=== PATIENT | female | born 1960 | race Caucasian/White ===

== ENCOUNTER 2023-12-14 08:22 | Inpatient (IN) | payer MEDICARE, OTHER ==
[~2023-12-14] VITALS: Ht 160 cm; Wt 95.7 kg
[2023-12-28] MEDS ORDERED: TIZA4TAB5 PO (14:07)
[2023-12-28] MEDS ORDERED: LORA10TA7 PO (14:07)
[2023-12-28] MEDS ORDERED: BENZ-38 PO (14:07)
[2023-12-28] MEDS ORDERED: CLON0.1T PO (14:07)
[2023-12-28] MEDS ORDERED: DULO60CA64 PO (14:07)
[2023-12-28] MEDS ORDERED: LINA145C PO (14:07)
[2023-12-28] MEDS ORDERED: SUMA50TA17 PO (14:07)
[2023-12-28] MEDS ORDERED: OXYC30TA2 PO (14:07)
[2023-12-28] MEDS ORDERED: TEMA30CA PO (14:07)
[2023-12-28] MEDS ORDERED: GABA-536 PO (14:07)
[2023-12-28] MEDS ORDERED: SULI150T PO (14:07)
[2023-12-28] MEDS ORDERED: SEMA1PEN SQ (14:07)
[2023-12-28] MEDS ORDERED: OXYC20TA58 PO (14:07)
[2023-12-28] MEDS ORDERED: BUDE10.2 IH (14:07)
[2023-12-28] MEDS ORDERED: EMPA1TAB7 PO (14:07)
[2023-12-28] MEDS ORDERED: DICL100G26 TP (14:07)
[2023-12-28] MEDS ORDERED: NIFE90TA61 PO (14:07)
[2023-12-28] MEDS ORDERED: ATEN50TA PO (14:07)
[2023-12-28] MEDS ORDERED: ALBU18HF2 IH (14:07)
[2023-12-28 14:56] LABS: BASOPHILS # (AUTO) 0.1 K/uL (0.0-0.2); BASOPHILS % (AUTO) 0.8 % (0.0-2.0); EOSINOPHILS # (AUTO) 0.4 K/uL (0.0-0.7); HEMATOCRIT 41 % (33-45); HEMOGLOBIN 13.8 g/dL (11.5-14.8); LYMPHOCYTES # (AUTO) 2.9 K/uL (0.8-4.8); LYMPHOCYTES % (AUTO) 30.5 % (20.0-44.0); MEAN CORPUSCULAR HEMOGLOBIN 33 PG (26.0-33.0); MEAN CORPUSCULAR HGB CONC 34 g/dl (31.0-36.0); MEAN CORPUSCULAR VOLUME 98 fL (82-100); MONOCYTES # (AUTO) 0.5 K/uL (0.1-1.30); MONOCYTES % (AUTO) 5.7 % (2.0-12.0); NEUTROPHILS # (AUTO) 5.6 K/uL (1.8-8.9); PLATELET COUNT (AUTO) 220 K/uL (150-450); RED BLOOD CELL COUNT(AUTO) 4.17 MIL/uL (4.0-5.2); RED CELL DISTRIBUTION WIDTH 13.7 % (11.5-15.0); WHITE BLOOD COUNT (AUTO) 9.4 K/uL (4.3-11.0)
[2023-12-28 15:17] LABS: INR 1.08 (0.91-1.10); PARTIAL THROMBOPLASTIN TIME 29.6 SEC (24.3-34.3); PROTHROMBIN TIME 11.4 SECS (9.2-11.1)
[2023-12-28] MEDS ORDERED: NALOXONE HCL 0.4 MG/ML AMPUL IV PRN (15:30)
[2023-12-28 15:50] LABS: ALBUMIN 3.5 g/dL (3.4-5.0); BILIRUBIN,TOTAL 0.2 mg/dL (0.2-1.0); CALCIUM, SERUM 8.9 mg/dL (8.5-10.1); CREATININE 1.2 mg/dL (0.6-1.3); POTASSIUM 3.6 mmol/L (3.5-5.1); TOTAL PROTEIN, SERUM 7.4 g/dL (6.4-8.2)
[2023-12-28] MEDS: oxyCODONE IR immediate release 5 MG TABLET PO PRN (15:55)
[2023-12-28] MEDS ORDERED: ALBUTEROL FS 2.5 MG/3 ML VIAL.NEB NEB PRN (16:00)
[2023-12-28] MEDS: GABAPENTIN 400 MG CAPSULE PO SCH (16:58)
[2023-12-28] MEDS: DULOXETINE HCL 30 MG CAPSULE.DR PO SCH (16:58)
[2023-12-28] MEDS: TIZANIDINE HCL 4 MG TABLET PO SCH (16:58)
[2023-12-28] MEDS: BUDESONIDE RESPULE INH 0.5 MG/2 ML AMPUL.NEB IH SCH (17:00)
[2023-12-28 20:00] VITALS: BP 119/78; TEMP 97.9; O2SAT 96
[2023-12-28] MEDS: ALBUTEROL FS 2.5 MG/3 ML VIAL.NEB NEB SCH (20:15)
[2023-12-28 20:16] VITALS: O2SAT 97
[2023-12-28 20:26] VITALS: O2SAT 98
[2023-12-28] MEDS: oxyCODONE HCL SR 20MG TAB.SR.12H PO SCH (20:37)
[2023-12-28] MEDS: IV D5/0.45 NACL 1,000 ML IV ONE (23:52)
[2023-12-29] VITALS (9 sets, daily range): BP systolic 148–165; BP diastolic 87–102; TEMP 97–97.2; O2SAT 97–100
[2023-12-29] MEDS: MORPHINE SULFATE INJ 2 MG/ML DISP.SYRIN IV PRN (05:41)
[2023-12-29] MEDS ORDERED: POLYMYXIN B SULFATE 0 UNITS ONE (07:38)
[2023-12-29] MEDS ORDERED: CELLULOSE,OXIDIZED 1 EA PACK MC ONE (07:38)
[2023-12-29] MEDS ORDERED: CELLULOSE,OXIDIZED 1 EACH EACH MC ONE (07:39)
[2023-12-29] MEDS ORDERED: CEFAZOLIN 2 GM ONE (07:39)
[2023-12-29] MEDS ORDERED: LIDOCAINE 1%-EPI 1:100,000 20 ML VIAL ONE (07:39)
[2023-12-29] MEDS ORDERED: GELATIN SPONGE,ABSORBABLE 1 SPONGE SPONGE TP ONE (07:40)
[2023-12-29] MEDS ORDERED: GELATIN SPONGE,ABSORBABLE 1 EA SPONGE TP ONE ×2 (07:40→15:04)
[2023-12-29] MEDS ORDERED: HEMOSTATIC MATRIX 8 ML 1 EACH PAD MC ONE (07:41)
[2023-12-29] MEDS ORDERED: THROMBIN (BOVINE) 5,000 UNITS VIAL TP ONE ×3 (07:41→15:04)
[2023-12-29] MEDS ORDERED: LIDOCAINE 5% (PATCH) 1 EA PATCH TP ONE (07:41)
[2023-12-29] MEDS ORDERED: IOHEXOL 240MG/ML 0 ML IV ONE (07:42)
[2023-12-29] MEDS ORDERED: BUPIVACAINE 0.5 % PF 150 MG/30 ML VIAL ONE (07:42)
[2023-12-29] MEDS: ATENOLOL 50 MG TABLET PO SCH (09:00)
[2023-12-29] MEDS: NIFEDIPINE XL 60 MG TAB.ER.24 PO SCH (09:00)
[2023-12-29] MEDS ORDERED: ROCURONIUM BROMIDE 50 MG/5 ML ONE ×3 (09:41→11:16)
[2023-12-29 09:46] LABS: APPEARANCE,URINE SLIGHTLY CLOUDY (CLEAR); BILIRUBIN,URINE NEGATIVE (NEGATIVE); BLOOD, URINE NEGATIVE Ery/uL (NEGATIVE); COLOR,URINE YELLOW (YELLOW); KETONES,URINE NEGATIVE (NEGATIVE); LEUKOCYTE ESTERASE ,URINE NEGATIVE (NEGATIVE); NITRITE, URINE POSITIVE (NEGATIVE); PROTEIN,URINE NEGATIVE (NEGATIVE); UGLUCOSE 2+ mg/dL (NEGATIVE); UROBILINOGEN,URINE 0.2 EU/dL (0.2)
[2023-12-29] MEDS ORDERED: HEPARIN SODIUM, PORCINE 5000 UNITS/1 ML VIAL ONE (09:48)
[2023-12-29 09:54] LABS: ADD URINE CULTURE YES; BACTERIA,URINE Moderate /HPF (None Seen); RBC,URINE 0-2 /HPF (0-2); SQUAMOUS EPITHELIAL CELL,UR Rare /HPF (None Seen)
[2023-12-29] MEDS ORDERED: LEVOFLOXACIN 500 MG /D5W 100ML 100 ML IV ONE (10:56)
[2023-12-29 11:03] LABS: ABG BASE EXCESS 1.4 mmol/L; ABG OXYGEN SATURATION 99.6 % (92.0-98.5); ABG PCO2 49.3 mmHg (35.0-45.0); ABG PH 7.367 (7.350-7.450); ABG PO2 504.7 mmHg (75.0-100.0); ABG TOTAL HEMOGLOBIN 16.6 G/dL (12.0-16.0); COHb 0.5 % (0.5-1.5); MetHb 0.4 % (0.0-1.5); O2Hb 98.7 % (94.0-97.0); SITE, ABG A-Line; VENT MODE, BG 100%
[2023-12-29] MEDS ORDERED: PROPOFOL 100 ML ONE (11:07)
[2023-12-29] MEDS ORDERED: PROPOFOL 0 ML IV ONE (11:11)
[2023-12-29] MEDS ORDERED: PROPOFOL 200 ML ONE (11:11)
[2023-12-29] MEDS ORDERED: LABETALOL HCL IV 100MG VIAL ONE (11:29)
[2023-12-29] MEDS ORDERED: FENTANYL PF 250MCG/5ML AMPUL ONE (11:48)
[2023-12-29] MEDS ORDERED: TRANEXAMIC ACID 1,000 MG/10 ML VIAL ONE (12:29)
[2023-12-29] MEDS ORDERED: POLYMYXIN B SULFATE 1,000,000 UNITS ONE (13:05)
[2023-12-29] MEDS ORDERED: CEFAZOLIN 1 GM ONE ×3 (13:05→15:21)
[2023-12-29 15:04] LABS: ABG BASE EXCESS -2.8 mmol/L; ABG OXYGEN SATURATION 99.6 % (92.0-98.5); ABG PCO2 38.5 mmHg (35.0-45.0); ABG PH 7.375 (7.350-7.450); ABG PO2 481.9 mmHg (75.0-100.0); ABG TOTAL HEMOGLOBIN 15.6 G/dL (12.0-16.0); AaDO2 192.6 mmHg; COHb 0.3 % (0.5-1.5); MetHb 0.4 % (0.0-1.5); O2Hb 98.9 % (94.0-97.0); SITE, ABG A-Line; VENT MODE, BG 100%
[2023-12-29 16:12] LABS: BASOPHILS % (AUTO) 0.2 % (0.0-2.0); EOSINOPHILS % (AUTO) 0.1 % (0.0-6.0); HEMATOCRIT 44 % (33-45); HEMOGLOBIN 14.8 g/dL (11.5-14.8); LYMPHOCYTES % (AUTO) 4.6 % (20.0-44.0); MEAN CORPUSCULAR HEMOGLOBIN 33 PG (26.0-33.0); MEAN CORPUSCULAR HGB CONC 33 g/dl (31.0-36.0); MEAN CORPUSCULAR VOLUME 98 fL (82-100); MONOCYTES # (AUTO) 0.9 K/uL (0.1-1.30); MONOCYTES % (AUTO) 3.9 % (2.0-12.0); NEUTROPHILS # (AUTO) 20.2 K/uL (1.8-8.9); NEUTROPHILS % (AUTO) 91.2 % (43.0-81.0); PLATELET COUNT (AUTO) 305 K/uL (150-450); RED BLOOD CELL COUNT(AUTO) 4.53 MIL/uL (4.0-5.2); RED CELL DISTRIBUTION WIDTH 13.8 % (11.5-15.0); WHITE BLOOD COUNT (AUTO) 22.1 K/uL (4.3-11.0)
[2023-12-29 17:10] LABS: ABG BASE EXCESS -6.3 mmol/L; ABG OXYGEN SATURATION 99.6 % (92.0-98.5); ABG PCO2 36.7 mmHg (35.0-45.0); ABG PH 7.329 (7.350-7.450); ABG PO2 524.5 mmHg (75.0-100.0); ABG TOTAL HEMOGLOBIN 16.5 G/dL (12.0-16.0); AaDO2 151.8 mmHg; COHb 0.4 % (0.5-1.5); MetHb 0.4 % (0.0-1.5); O2Hb 98.8 % (94.0-97.0); SITE, ABG A-Line; VENT MODE, BG 100% during surgery
[2023-12-29] MEDS ORDERED: FENTANYL PF 100MCG/2ML AMPUL ONE (20:45)
[2023-12-29] MEDS: IV D5/0.45 NACL 1,000 ML IV PRN (21:10)
[2023-12-29] MEDS: ZOSYN IVPB 3.375 G in IV D5W 50ml IV SCH (21:10)
[2023-12-29] MEDS: HYDROMORPHONE 1 MG/1 ML DISP.SYRIN IV PRN (21:33)
[2023-12-29] MEDS: VANCOMYCIN 1 GM in IV D5W 250ml IV SCH (22:07)
[2023-12-29] MEDS: ONDANSETRON HCL/PF 4 MG/2 ML VIAL IV PRN (22:14)
[2023-12-29] MEDS: METOCLOPRAMIDE HCL 10 MG/2 ML VIAL IV PRN (22:56)
[2023-12-29] MEDS: HYDROMORPHONE INJ 2 MG/ML DISP.SYRIN IV PRN (23:34)
[2023-12-30] VITALS (49 sets, daily range): BP systolic 58–165; BP diastolic 23–112; TEMP 97.6–98.8; O2SAT 93–100
[2023-12-30 00:24] LABS: THYROID STIMULATING HORMONE 1.35 uIU/mL (0.358-3.74)
[2023-12-30 04:36] LABS: BASOPHILS % (AUTO) 0.1 % (0.0-2.0); HEMATOCRIT 42 % (33-45); HEMOGLOBIN 13.9 g/dL (11.5-14.8); LYMPHOCYTES # (AUTO) 1.2 K/uL (0.8-4.8); LYMPHOCYTES % (AUTO) 4.6 % (20.0-44.0); MEAN CORPUSCULAR HEMOGLOBIN 31 PG (26.0-33.0); MEAN CORPUSCULAR HGB CONC 33 g/dl (31.0-36.0); MEAN CORPUSCULAR VOLUME 93 fL (82-100); MONOCYTES % (AUTO) 11.2 % (2.0-12.0); NEUTROPHILS # (AUTO) 22.5 K/uL (1.8-8.9); NEUTROPHILS % (AUTO) 84.1 % (43.0-81.0); PLATELET COUNT (AUTO) 265 K/uL (150-450); RED BLOOD CELL COUNT(AUTO) 4.47 MIL/uL (4.0-5.2); RED CELL DISTRIBUTION WIDTH 18.4 % (11.5-15.0); WHITE BLOOD COUNT (AUTO) 26.8 K/uL (4.3-11.0)
[2023-12-30 04:49] LABS: ALBUMIN 2.9 g/dL (3.4-5.0); BILIRUBIN,TOTAL 0.5 mg/dL (0.2-1.0); CALCIUM, SERUM 8.4 mg/dL (8.5-10.1); CREATININE 1.1 mg/dL (0.6-1.3); TOTAL PROTEIN, SERUM 6.5 g/dL (6.4-8.2)
[2023-12-30] MEDS: NIFEdipine XL (30MG) 30 MG TAB PO SCH (08:58)
[2023-12-30] MEDS: ATENOLOL 25 MG TABLET PO SCH (09:00)
[2023-12-30] MEDS: IV NS 0.9% 1,000 ML IV ONE (19:53)
[2023-12-31] VITALS (40 sets, daily range): BP systolic 101–186; BP diastolic 52–103; TEMP 98–98.5; O2SAT 95–100
[2023-12-31 04:41] LABS: BASOPHILS # (AUTO) 0.1 K/uL (0.0-0.2); BASOPHILS % (AUTO) 0.3 % (0.0-2.0); EOSINOPHILS # (AUTO) 0.2 K/uL (0.0-0.7); EOSINOPHILS % (AUTO) 0.9 % (0.0-6.0); HEMATOCRIT 29 % (33-45); HEMOGLOBIN 9.5 g/dL (11.5-14.8); LYMPHOCYTES # (AUTO) 2.6 K/uL (0.8-4.8); LYMPHOCYTES % (AUTO) 12.8 % (20.0-44.0); MEAN CORPUSCULAR HEMOGLOBIN 31 PG (26.0-33.0); MEAN CORPUSCULAR HGB CONC 34 g/dl (31.0-36.0); MEAN CORPUSCULAR VOLUME 94 fL (82-100); MONOCYTES # (AUTO) 2.2 K/uL (0.1-1.30); MONOCYTES % (AUTO) 10.7 % (2.0-12.0); NEUTROPHILS # (AUTO) 15.4 K/uL (1.8-8.9); NEUTROPHILS % (AUTO) 75.3 % (43.0-81.0); PLATELET COUNT (AUTO) 186 K/uL (150-450); RED BLOOD CELL COUNT(AUTO) 3.04 MIL/uL (4.0-5.2); RED CELL DISTRIBUTION WIDTH 18.4 % (11.5-15.0); WHITE BLOOD COUNT (AUTO) 20.4 K/uL (4.3-11.0)
[2023-12-31 04:55] LABS: ALBUMIN 2.5 g/dL (3.4-5.0); BILIRUBIN,TOTAL 0.5 mg/dL (0.2-1.0); CALCIUM, SERUM 8.2 mg/dL (8.5-10.1); CREATININE 0.8 mg/dL (0.6-1.3); POTASSIUM 3.6 mmol/L (3.5-5.1); TOTAL PROTEIN, SERUM 5.7 g/dL (6.4-8.2)
[2023-12-31] MEDS: NIFEdipine XL (30MG) 30 MG TAB PO SCH (09:09)
[2023-12-31] MEDS: hydrALAZINE HCL IV 20 MG VIAL IV PRN (13:33)
[2023-12-31] MEDS ORDERED: BUDESONIDE RESPULE INH 0.5 MG/2 ML AMPUL.NEB IH SCH (17:37)
[2023-12-31] MEDS: POLYETHYLENE GLYCOL 3350 17 GM POWD.PACK PO PRN (17:44)
[2023-12-31] MEDS: TEMAZEPAM 15 MG CAPSULE PO PRN (21:37)
[2024-01-01] VITALS (21 sets, daily range): BP systolic 116–179; BP diastolic 60–97; TEMP 97.7–98.3; O2SAT 93–100
[2024-01-01 03:26] LABS: EOSINOPHILS # (AUTO) 1.2 K/uL (0.0-0.7); EOSINOPHILS % (AUTO) 5.1 % (0.0-6.0); HEMATOCRIT 28 % (33-45); HEMOGLOBIN 9.4 g/dL (11.5-14.8); LYMPHOCYTES # (AUTO) 2.4 K/uL (0.8-4.8); LYMPHOCYTES % (AUTO) 10.1 % (20.0-44.0); MEAN CORPUSCULAR HEMOGLOBIN 31 PG (26.0-33.0); MEAN CORPUSCULAR HGB CONC 33 g/dl (31.0-36.0); MEAN CORPUSCULAR VOLUME 94 fL (82-100); MONOCYTES % (AUTO) 4.3 % (2.0-12.0); NEUTROPHILS % (AUTO) 80.5 % (43.0-81.0); PLATELET COUNT (AUTO) 234 K/uL (150-450); RED BLOOD CELL COUNT(AUTO) 3.02 MIL/uL (4.0-5.2); RED CELL DISTRIBUTION WIDTH 17.6 % (11.5-15.0); WHITE BLOOD COUNT (AUTO) 23.6 K/uL (4.3-11.0)
[2024-01-01 03:45] LABS: ALBUMIN 2.7 g/dL (3.4-5.0); CALCIUM, SERUM 8.1 mg/dL (8.5-10.1); CREATININE 0.8 mg/dL (0.6-1.3); TOTAL PROTEIN, SERUM 5.9 g/dL (6.4-8.2)
[2024-01-01 04:13] LABS: POTASSIUM 2.6 mmol/L (3.5-5.1)
[2024-01-01] MEDS: BUDESONIDE RESPULE INH 0.5 MG/2 ML AMPUL.NEB IH SCH (07:05)
[2024-01-01] MEDS: POTASSIUM CL. PREMIX PERIPHER. 50 ML IV SCH (09:41)
[2024-01-01] MEDS: IV D5/ 0.9% NACL 1,000 ML IV PRN (10:21)
[2024-01-01] MEDS ORDERED: DEXTROSE 50%-WATER 50 ML DISP.SYRIN IV PRN (11:30)
[2024-01-01] MEDS: BLOOD SUGAR DIAGNOSTIC 1 EACH STRIP VI SCH (11:43)
[2024-01-01 22:01] LABS: BILIRUBIN,DIRECT 0.3 mg/dL (0.0-0.2)
[2024-01-01 22:13] LABS: LACTIC ACID REFLEX 1.9 mmol/L (0.4-1.9)
[2024-01-01] MEDS: INSULIN REGULAR, HUMAN 100 UNIT/ML 3 ML VIAL SQ PRN (23:26)
[2024-01-02] VITALS (15 sets, daily range): BP systolic 92–145; BP diastolic 40–118; TEMP 97.8–98.4; O2SAT 90–100
[2024-01-02 06:19] LABS: BASOPHILS % (AUTO) 0.2 % (0.0-2.0); EOSINOPHILS # (AUTO) 0.1 K/uL (0.0-0.7); EOSINOPHILS % (AUTO) 0.5 % (0.0-6.0); HEMATOCRIT 30 % (33-45); HEMOGLOBIN 9.8 g/dL (11.5-14.8); LYMPHOCYTES # (AUTO) 2.3 K/uL (0.8-4.8); LYMPHOCYTES % (AUTO) 12.1 % (20.0-44.0); MEAN CORPUSCULAR HEMOGLOBIN 32 PG (26.0-33.0); MEAN CORPUSCULAR HGB CONC 33 g/dl (31.0-36.0); MEAN CORPUSCULAR VOLUME 96 fL (82-100); MONOCYTES # (AUTO) 1.5 K/uL (0.1-1.30); MONOCYTES % (AUTO) 7.9 % (2.0-12.0); NEUTROPHILS # (AUTO) 15.1 K/uL (1.8-8.9); NEUTROPHILS % (AUTO) 79.3 % (43.0-81.0); PLATELET COUNT (AUTO) 291 K/uL (150-450); RED BLOOD CELL COUNT(AUTO) 3.11 MIL/uL (4.0-5.2); RED CELL DISTRIBUTION WIDTH 18.1 % (11.5-15.0); WHITE BLOOD COUNT (AUTO) 19.1 K/uL (4.3-11.0)
[2024-01-02 06:43] LABS: CREATININE 0.7 mg/dL (0.6-1.3); MAGNESIUM 2.2 mg/dL (1.8-2.4)
[2024-01-02 07:00] LABS: POTASSIUM 2.5 mmol/L (3.5-5.1)
[2024-01-02] MEDS: POTASSIUM CHLORIDE 20 MEQ TAB.PRT.SR PO ONE (09:59)
[2024-01-02] MEDS: GABAPENTIN 400 MG CAPSULE PO SCH (12:30)
[2024-01-02] MEDS: *INSULIN REGULAR(HUMULIN R)HUM 100 UNIT/ML VIAL SQ PRN (12:32)
[2024-01-02] MEDS: ZOSYN IVPB 3.375 G in IV D5W 50ml IV SCH (15:15)
[2024-01-02] MEDS: MEROPENEM 1 G in IV NS 0.9% 100 ML IV SCH (20:21)
[2024-01-02] MEDS: oxyCODONE HCL SR 20MG TAB.SR.12H PO SCH (20:22)
[2024-01-03] VITALS (16 sets, daily range): BP systolic 94–160; BP diastolic 45–82; TEMP 97.3–99.3; O2SAT 94–100
[2024-01-03 07:09] LABS: BASOPHILS % (AUTO) 0.3 % (0.0-2.0); EOSINOPHILS # (AUTO) 0.7 K/uL (0.0-0.7); EOSINOPHILS % (AUTO) 5.2 % (0.0-6.0); HEMATOCRIT 25 % (33-45); LYMPHOCYTES # (AUTO) 3.1 K/uL (0.8-4.8); LYMPHOCYTES % (AUTO) 24.4 % (20.0-44.0); MEAN CORPUSCULAR HEMOGLOBIN 31 PG (26.0-33.0); MEAN CORPUSCULAR HGB CONC 33 g/dl (31.0-36.0); MEAN CORPUSCULAR VOLUME 96 fL (82-100); MONOCYTES # (AUTO) 1.3 K/uL (0.1-1.30); MONOCYTES % (AUTO) 10.1 % (2.0-12.0); NEUTROPHILS # (AUTO) 7.5 K/uL (1.8-8.9); PLATELET COUNT (AUTO) 231 K/uL (150-450); RED BLOOD CELL COUNT(AUTO) 2.57 MIL/uL (4.0-5.2); RED CELL DISTRIBUTION WIDTH 18.2 % (11.5-15.0); WHITE BLOOD COUNT (AUTO) 12.5 K/uL (4.3-11.0)
[2024-01-03] MEDS: GLUCERNA SHAKE 237 ML CAN PO SCH (09:07)
[2024-01-03] MEDS: SENNOSIDES/DOCUSATE SODIUM 1 TAB TABLET PO SCH (09:25)
[2024-01-03 10:07] LABS: CALCIUM, SERUM 8.3 mg/dL (8.5-10.1); POTASSIUM 2.9 mmol/L (3.5-5.1)
[2024-01-03] MEDS: GABAPENTIN 300 MG CAPSULE PO SCH (10:48)
[2024-01-03] MEDS: POTASSIUM CHLORIDE 20 MEQ TAB.PRT.SR PO ONE (12:31)
[2024-01-03] MEDS: VITAMINS A AND D 56.7 GM TUBE TP SCH (13:48)
[2024-01-03] MEDS: HYDROCODONE/APAP 5/325MG TABLET PO PRN (16:14)
[2024-01-03] MEDS: ACETAMINOPHEN 325 MG TABLET PO PRN (17:04)
[2024-01-04] VITALS (20 sets, daily range): BP systolic 90–170; BP diastolic 50–92; TEMP 97–99.5; O2SAT 94–100
[2024-01-04 07:09] LABS: CALCIUM, SERUM 8.8 mg/dL (8.5-10.1); CREATININE 0.7 mg/dL (0.6-1.3); MAGNESIUM 1.8 mg/dL (1.8-2.4); PHOSPHORUS 3.5 mg/dL (2.5-4.9)
[2024-01-04 07:12] LABS: BASOPHILS % (AUTO) 0.3 % (0.0-2.0); EOSINOPHILS # (AUTO) 0.7 K/uL (0.0-0.7); EOSINOPHILS % (AUTO) 5.4 % (0.0-6.0); HEMATOCRIT 32 % (33-45); HEMOGLOBIN 10.7 g/dL (11.5-14.8); LYMPHOCYTES # (AUTO) 2.5 K/uL (0.8-4.8); LYMPHOCYTES % (AUTO) 18.3 % (20.0-44.0); MEAN CORPUSCULAR HEMOGLOBIN 31 PG (26.0-33.0); MEAN CORPUSCULAR HGB CONC 33 g/dl (31.0-36.0); MEAN CORPUSCULAR VOLUME 94 fL (82-100); MONOCYTES # (AUTO) 1.1 K/uL (0.1-1.30); NEUTROPHILS # (AUTO) 9.3 K/uL (1.8-8.9); PLATELET COUNT (AUTO) 292 K/uL (150-450); RED BLOOD CELL COUNT(AUTO) 3.41 MIL/uL (4.0-5.2); RED CELL DISTRIBUTION WIDTH 17.6 % (11.5-15.0); WHITE BLOOD COUNT (AUTO) 13.6 K/uL (4.3-11.0)
[2024-01-04 08:13] LABS: POTASSIUM 2.8 mmol/L (3.5-5.1)
[2024-01-04] MEDS: HYDROMORPHONE INJ 2 MG/ML DISP.SYRIN IV PRN (08:46)
[2024-01-04] MEDS: POTASSIUM CHLORIDE 20 MEQ TAB.PRT.SR PO ONE (08:54)
[2024-01-04 09:16] LABS: BAND % (MANUAL) 2 % (0.0-5.0); EOSINOPHILS % (MANUAL) 4 % (0-4); LYMPHOCYTES % (MANUAL) 21 % (16-48); MONOCYTES % (MANUAL) 8 % (0-11.0); NEUTROPHILS % (MANUAL) 65 (42-76); PLATELET ESTIMATE ADEQUATE
[2024-01-04 09:17] LABS: ANISOCYTOSIS 1+; HYPOCHROMASIA 1+
[2024-01-04] MEDS: CEFTRIAXONE 2 G in IV D5W 100 ML IV SCH (12:16)
[2024-01-04] MEDS ORDERED: MEROPENEM 1 G in IV NS 0.9% 100 ML IV SCH (13:00)
[2024-01-05] VITALS (10 sets, daily range): BP systolic 92–173; BP diastolic 49–91; TEMP 97.5–99.5; O2SAT 96–100
[2024-01-05 08:47] LABS: CALCIUM, SERUM 9.3 mg/dL (8.5-10.1); CREATININE 0.5 mg/dL (0.6-1.3)
[2024-01-05 08:54] LABS: POTASSIUM 2.6 mmol/L (3.5-5.1)
[2024-01-05] MEDS: POTASSIUM CL. PREMIX PERIPHER. 50 ML IV SCH (10:10)
[2024-01-06 02:05] VITALS: O2SAT 94
[2024-01-06 02:20] VITALS: O2SAT 99
[2024-01-06 04:00] VITALS: BP 101/71; TEMP 97.6
[2024-01-06] MEDS ORDERED: SENN1TAB6 PO (09:57)
[2024-01-06] MEDS ORDERED: CEPH500T PO (09:57)
[2024-01-06] MEDS ORDERED: NIFE-35 PO (09:57)
[2024-01-06] MEDS ORDERED: OXYC5CAP18 PO (09:57)
[2024-01-06] MEDS ORDERED: ATEN25TA PO (09:57)
[2024-01-06] MEDS ORDERED: Hydrocodone/Apap 5/325MG PO (09:57)
[2024-01-06] MEDS ORDERED: oxyCODONE HCL SR 20MG PO (09:57)
[2024-01-06] MEDS ORDERED: POLY17PO29 PO (09:57)
[2024-01-06] MEDS ORDERED: BUDE0.5A IH (09:57)
[2024-01-06] MEDS ORDERED: ACID1TAB12 PO (09:57)
[2024-01-06] MEDS ORDERED: NALO4SPR BNOSTRILS (09:57)
[2024-01-06] MEDS ORDERED: GABA300C PO (09:57)
[2024-01-06] MEDS ORDERED: ACET325T53 PO (09:57)
[2024-01-06 12:00] VITALS: BP 108/70; TEMP 97.6; O2SAT 99
[2024-01-06] MEDS: HYDROMORPHONE HCL 2 MG TABLET PO ONE (12:05)
[2024-01-06] MEDS: DIPHENOXYLATE HCL/ATROP SULF 1 UDTAB TABLET PO ONE (13:21)
== END 2024-01-06 13:48 | disposition home health service (06) | DRG 454 ==
LOC: MED 12-28 13:05 → ICU 12-29 19:46 → TELE1 01-01 16:23 → MEDSG1 01-05 13:00
PROVIDERS: ADMIT Nurse Practitioner Acute Care; ATTEND Nurse Practitioner Acute Care
PROC: 01NR0ZZ Release Sacral Nerve, Open Approach (ICD-10-PCS; principal; 2023-12-29)
PROC: 0SB20ZZ Excision of Lumbar Vertebral Disc, Open Approach (ICD-10-PCS; principal; 2023-12-29)
PROC: 0SG1071 Fusion of 2 or more Lumbar Vertebral Joints with Autologous Tissue Substitute, Posterior Approach, Posterior Column, Open Approach (ICD-10-PCS; principal; 2023-12-29)
PROC: 0SG10AJ Fusion of 2 or more Lumbar Vertebral Joints with Interbody Fusion Device, Posterior Approach, Anterior Column, Open Approach (ICD-10-PCS; principal; 2023-12-29)
PROC: 01NB0ZZ Release Lumbar Nerve, Open Approach (ICD-10-PCS; principal; 2023-12-29)
PROC: 00UT07Z Supplement Spinal Meninges with Autologous Tissue Substitute, Open Approach (ICD-10-PCS; principal; 2023-12-29)
PROC: 30233N1 Transfusion of Nonautologous Red Blood Cells into Peripheral Vein, Percutaneous Approach (ICD-10-PCS; 2023-12-29)
PROC: 0SG30AJ Fusion of Lumbosacral Joint with Interbody Fusion Device, Posterior Approach, Anterior Column, Open Approach (ICD-10-PCS; 2023-12-29)
PROC: 0SG3071 Fusion of Lumbosacral Joint with Autologous Tissue Substitute, Posterior Approach, Posterior Column, Open Approach (ICD-10-PCS; 2023-12-29)
PROC: 05HB33Z Insertion of Infusion Device into Right Basilic Vein, Percutaneous Approach (ICD-10-PCS; 2023-12-31)
PROC: B54MZZA Ultrasonography of Right Upper Extremity Veins, Guidance (ICD-10-PCS; 2023-12-31)
DX: M48.061 Spinal stenosis, lumbar region without neurogenic claudication (principal); E44.0 Moderate protein-calorie malnutrition; E87.1 Hypo-osmolality and hyponatremia; N39.0 Urinary tract infection, site not specified; E11.9 Type 2 diabetes mellitus without complications; M51.16 Intervertebral disc disorders with radiculopathy, lumbar region; M41.86 Other forms of scoliosis, lumbar region; E78.5 Hyperlipidemia, unspecified; I10 Essential (primary) hypertension; B96.1 Klebsiella pneumoniae [K. pneumoniae] as the cause of diseases classified elsewhere; E11.40 Type 2 diabetes mellitus with diabetic neuropathy, unspecified; E87.6 Hypokalemia; E88.09 Other disorders of plasma-protein metabolism, not elsewhere classified; G89.4 Chronic pain syndrome; J45.909 Unspecified asthma, uncomplicated; Z79.891 Long term (current) use of opiate analgesic; Z88.2 Allergy status to sulfonamides; Z96.653 Presence of artificial knee joint, bilateral; F39 Unspecified mood [affective] disorder; G43.909 Migraine, unspecified, not intractable, without status migrainosus; G47.33 Obstructive sleep apnea (adult) (pediatric); Z83.3 Family history of diabetes mellitus; M19.90 Unspecified osteoarthritis, unspecified site; E66.9 Obesity, unspecified; Z68.37 Body mass index [BMI] 37.0-37.9, adult; Z90.711 Acquired absence of uterus with remaining cervical stump; Z98.1 Arthrodesis status; F32.9 Major depressive disorder, single episode, unspecified; D64.89 Other specified anemias
CPT/HCPCS: 36410; 36415; 36600; 71045-TC; 72110-TC; 80048-TC; 80053-TC; 80061-TC; 81001; 82248-TC; 82803-TC; 83605-TC; 83735-TC; 84100-TC; 84439-TC; 84443-TC; 85025-TC; 85610-TC; 85730-TC; 86850-TC; 87040-TC; 87086-TC; 88300-TC; 93307-TC; 94762-TC; 94799-TC; 97110-TC; 97116-TC; 97530-TC; A4223; A6253; A6403; C1713; C1751; C1889; G0378; J0360; J0461; J0690; J0696; J1100; J1170; J1644; J1815; J1956; J2185; J2270; J2405; J2543; J2704; J2765; J3010; J3370; J3480; J3490; J7030; J7040; J7042; J7050; J7060; P9016; Q9966

== ENCOUNTER 2024-02-01 08:42 | Inpatient (IN) | payer MEDICARE, OTHER ==
[~2024-02-01] VITALS: Ht 160 cm; Wt 92.5 kg
[~2024-02-01 08:42] MED LIST: ACET325T53 PO; ACID1TAB12 PO; ALBU18HF2 IH; ATEN25TA PO; ATEN50TA PO; BENZ-38 PO; BUDE0.5A IH; BUDE10.2 IH; CEPH500T PO; CLON0.1T PO; DICL100G26 TP; DULO60CA64 PO; EMPA1TAB7 PO; GABA300C PO; Hydrocodone/Apap 5/325MG PO; LINA145C PO; LORA10TA7 PO; NALO4SPR BNOSTRILS; NIFE-35 PO; NIFE90TA61 PO; OXYC5CAP18 PO; POLY17PO29 PO; SEMA1PEN SQ; SENN1TAB6 PO; SULI150T PO; SUMA50TA17 PO; TEMA30CA PO; TIZA4TAB5 PO; oxyCODONE HCL SR 20MG PO
[2024-02-01] MEDS ORDERED: Z GUARD REMEDY 4 OZ OINT TP PRN (17:30)
[2024-02-01] MEDS ORDERED: ACETAMINOPHEN 325 MG TABLET PO PRN ×2 (17:30→18:00)
[2024-02-01 17:40] LABS: BASOPHILS % (AUTO) 0.3 % (0.0-2.0); EOSINOPHILS # (AUTO) 0.3 K/uL (0.0-0.7); EOSINOPHILS % (AUTO) 3.3 % (0.0-6.0); HEMATOCRIT 38 % (33-45); HEMOGLOBIN 12.8 g/dL (11.5-14.8); LYMPHOCYTES # (AUTO) 2.6 K/uL (0.8-4.8); LYMPHOCYTES % (AUTO) 25.1 % (20.0-44.0); MEAN CORPUSCULAR HEMOGLOBIN 31 PG (26.0-33.0); MEAN CORPUSCULAR HGB CONC 34 g/dl (31.0-36.0); MEAN CORPUSCULAR VOLUME 91 fL (82-100); MONOCYTES # (AUTO) 0.7 K/uL (0.1-1.30); MONOCYTES % (AUTO) 6.8 % (2.0-12.0); NEUTROPHILS # (AUTO) 6.8 K/uL (1.8-8.9); NEUTROPHILS % (AUTO) 64.5 % (43.0-81.0); PLATELET COUNT (AUTO) 288 K/uL (150-450); RED BLOOD CELL COUNT(AUTO) 4.13 MIL/uL (4.0-5.2); RED CELL DISTRIBUTION WIDTH 16.4 % (11.5-15.0); WHITE BLOOD COUNT (AUTO) 10.5 K/uL (4.3-11.0)
[2024-02-01] MEDS ORDERED: DEXTROSE 50%-WATER 50 ML DISP.SYRIN IV PRN (18:00)
[2024-02-01] MEDS ORDERED: BENZONATATE 100 MG CAPSULE PO PRN (18:00)
[2024-02-01 18:01] LABS: ALBUMIN 3.1 g/dL (3.4-5.0); BILIRUBIN,TOTAL 0.3 mg/dL (0.2-1.0); CALCIUM, SERUM 8.8 mg/dL (8.5-10.1); CREATININE 0.9 mg/dL (0.6-1.3); POTASSIUM 3.7 mmol/L (3.5-5.1); TOTAL PROTEIN, SERUM 7.5 g/dL (6.4-8.2)
[2024-02-01 18:12] LABS: INR 1.11 (0.91-1.10); PARTIAL THROMBOPLASTIN TIME 28.8 SEC (24.3-34.3); PROTHROMBIN TIME 11.7 SECS (9.2-11.1)
[2024-02-01] MEDS ORDERED: ALBUTEROL FS 2.5 MG/0.5 ML VIAL.NEB NEB PRN (18:30)
[2024-02-01] MEDS ORDERED: SUMATRIPTAN SUCCINATE 25 MG TABLET PO PRN (18:30)
[2024-02-01] MEDS: oxyCODONE IR immediate release 5 MG TABLET PO PRN (18:34)
[2024-02-01] MEDS ORDERED: NALOXONE HCL 0.4 MG/ML AMPUL IV PRN (19:00)
[2024-02-01] MEDS: BUDESONIDE RESPULE INH 0.5 MG/2 ML AMPUL.NEB IH SCH (20:16)
[2024-02-01] MEDS: ALBUTEROL FS 2.5 MG/0.5 ML VIAL.NEB NEB SCH (20:16)
[2024-02-01 20:17] VITALS: O2SAT 95
[2024-02-01 20:35] VITALS: O2SAT 98
[2024-02-01] MEDS: TIZANIDINE HCL 4 MG TABLET PO ONE (21:15)
[2024-02-01] MEDS: GABAPENTIN 300 MG CAPSULE PO SCH (21:15)
[2024-02-01] MEDS: BLOOD SUGAR DIAGNOSTIC 1 EACH STRIP VI SCH (22:00)
[2024-02-01 22:26] VITALS: BP 134/79; TEMP 98.4; O2SAT 96
[2024-02-01] MEDS: TEMAZEPAM 15 MG CAPSULE PO PRN (23:00)
[2024-02-02] VITALS (14 sets, daily range): BP systolic 122–164; BP diastolic 69–101; TEMP 97.2–98.2; O2SAT 93–100
[2024-02-02] MEDS: IV D5/0.45 NACL 1,000 ML IV PRN (00:02)
[2024-02-02 06:22] LABS: BASOPHILS % (AUTO) 0.4 % (0.0-2.0); EOSINOPHILS # (AUTO) 0.3 K/uL (0.0-0.7); EOSINOPHILS % (AUTO) 3.1 % (0.0-6.0); HEMATOCRIT 36 % (33-45); HEMOGLOBIN 12.2 g/dL (11.5-14.8); LYMPHOCYTES # (AUTO) 2.7 K/uL (0.8-4.8); LYMPHOCYTES % (AUTO) 31.7 % (20.0-44.0); MEAN CORPUSCULAR HEMOGLOBIN 31 PG (26.0-33.0); MEAN CORPUSCULAR HGB CONC 34 g/dl (31.0-36.0); MEAN CORPUSCULAR VOLUME 92 fL (82-100); MONOCYTES # (AUTO) 0.7 K/uL (0.1-1.30); MONOCYTES % (AUTO) 7.7 % (2.0-12.0); NEUTROPHILS % (AUTO) 57.1 % (43.0-81.0); PLATELET COUNT (AUTO) 258 K/uL (150-450); RED BLOOD CELL COUNT(AUTO) 3.92 MIL/uL (4.0-5.2); RED CELL DISTRIBUTION WIDTH 16.5 % (11.5-15.0); WHITE BLOOD COUNT (AUTO) 8.7 K/uL (4.3-11.0)
[2024-02-02 06:50] LABS: MAGNESIUM 1.8 mg/dL (1.8-2.4); PHOSPHORUS 5.5 mg/dL (2.5-4.9); POTASSIUM 3.6 mmol/L (3.5-5.1)
[2024-02-02] MEDS: BUDESONIDE RESPULE INH 0.5 MG/2 ML AMPUL.NEB IH SCH (07:05)
[2024-02-02] MEDS ORDERED: POLYMYXIN B SULFATE 1,000,000 UNITS ONE ×2 (08:40→14:50)
[2024-02-02] MEDS ORDERED: GELATIN SPONGE,ABSORBABLE 1 EA SPONGE TP ONE (08:40)
[2024-02-02] MEDS ORDERED: CELLULOSE,OXIDIZED 1 EA PACK MC ONE (08:40)
[2024-02-02] MEDS ORDERED: HEMOSTATIC MATRIX 8 ML 1 EACH PAD MC ONE (08:40)
[2024-02-02] MEDS ORDERED: CEFAZOLIN 2 GM ONE ×2 (08:41→14:45)
[2024-02-02] MEDS ORDERED: LIDOCAINE 1%-EPI 1:100,000 20 ML VIAL ONE (08:41)
[2024-02-02] MEDS ORDERED: THROMBIN (BOVINE) 5,000 UNITS VIAL TP ONE ×2 (08:41→16:18)
[2024-02-02] MEDS ORDERED: CELLULOSE,OXIDIZED 1 EACH EACH MC ONE (08:41)
[2024-02-02] MEDS ORDERED: ANESTHESIA TRAY IN PYXIS 1 EA TRAY MC ONE (08:41)
[2024-02-02] MEDS ORDERED: CELLULOSE,OXIDIZED 1 PKT EACH MC ONE (08:41)
[2024-02-02] MEDS ORDERED: THROMBIN (BOVINE) 20,000 UNITS SPRAY KIT TP ONE (08:42)
[2024-02-02] MEDS: TIZANIDINE HCL 4 MG TABLET PO SCH (09:00)
[2024-02-02] MEDS: LORATADINE 10 MG TABLET PO SCH (09:00)
[2024-02-02] MEDS: ATENOLOL 50 MG TABLET PO SCH (09:00)
[2024-02-02] MEDS: ACIDOPHILUS/BULGARICUS 1 EACH TAB.CHEW PO SCH (09:00)
[2024-02-02] MEDS: SENNOSIDES/DOCUSATE SODIUM 1 TAB TABLET PO SCH (09:00)
[2024-02-02] MEDS ORDERED: Medication Not On Formulary EA (Linaclotide (Linzess) 145 MCG) PO SCH (09:00)
[2024-02-02] MEDS: DULOXETINE HCL 30 MG CAPSULE.DR PO SCH (09:00)
[2024-02-02] MEDS ORDERED: NIFEdipine XL (30MG) 30 MG TAB PO SCH (09:00)
[2024-02-02] MEDS: NIFEdipine XL (30MG) 30 MG TAB PO SCH (09:00)
[2024-02-02] MEDS: PANTOPRAZOLE 40 MG VIAL IV SCH (09:00)
[2024-02-02] MEDS ORDERED: TRANEXAMIC ACID 1,000 MG/10 ML VIAL ONE (09:25)
[2024-02-02] MEDS ORDERED: SEVOFLURANE 250 ML BOTTLE IH ONE (09:28)
[2024-02-02] MEDS ORDERED: FENTANYL PF 250MCG/5ML AMPUL ONE ×2 (09:36→13:09)
[2024-02-02] MEDS ORDERED: HYDROMORPHONE INJ 2 MG/ML DISP.SYRIN ONE ×3 (09:37→14:35)
[2024-02-02] MEDS ORDERED: HEPARIN SODIUM, PORCINE 5000 UNITS/1 ML VIAL ONE (09:52)
[2024-02-02] MEDS ORDERED: BACITRACIN OPHTH OINT 3.5 GM TUBE ONE (10:09)
[2024-02-02] MEDS ORDERED: LABETALOL HCL IV 100MG VIAL ONE (11:03)
[2024-02-02] MEDS ORDERED: FENTANYL PF 100MCG/2ML AMPUL ONE (14:34)
[2024-02-02 14:59] LABS: ABG BASE EXCESS -1.5 mmol/L; ABG OXYGEN SATURATION 99.6 % (92.0-98.5); ABG PH 7.314 (7.350-7.450); ABG PO2 461.3 mmHg (75.0-100.0); ABG TOTAL HEMOGLOBIN 14.5 G/dL (12.0-16.0); AaDO2 171.7 mmHg; COHb 1.1 % (0.5-1.5); MetHb 0.6 % (0.0-1.5); O2Hb 97.9 % (94.0-97.0); SITE, ABG A-Line; VENT MODE, BG SURGERY VENT %
[2024-02-02 15:05] LABS: BASOPHILS % (AUTO) 0.2 % (0.0-2.0); EOSINOPHILS % (AUTO) 0.1 % (0.0-6.0); HEMATOCRIT 39 % (33-45); HEMOGLOBIN 13.2 g/dL (11.5-14.8); LYMPHOCYTES # (AUTO) 0.7 K/uL (0.8-4.8); LYMPHOCYTES % (AUTO) 5.7 % (20.0-44.0); MEAN CORPUSCULAR HEMOGLOBIN 30 PG (26.0-33.0); MEAN CORPUSCULAR HGB CONC 34 g/dl (31.0-36.0); MEAN CORPUSCULAR VOLUME 90 fL (82-100); MONOCYTES # (AUTO) 0.1 K/uL (0.1-1.30); MONOCYTES % (AUTO) 1.2 % (2.0-12.0); NEUTROPHILS # (AUTO) 10.7 K/uL (1.8-8.9); NEUTROPHILS % (AUTO) 92.8 % (43.0-81.0); PLATELET COUNT (AUTO) 253 K/uL (150-450); RED BLOOD CELL COUNT(AUTO) 4.36 MIL/uL (4.0-5.2); RED CELL DISTRIBUTION WIDTH 15.9 % (11.5-15.0); WHITE BLOOD COUNT (AUTO) 11.6 K/uL (4.3-11.0)
[2024-02-02 15:21] LABS: CALCIUM, SERUM 7.9 mg/dL (8.5-10.1); CREATININE 0.9 mg/dL (0.6-1.3); POTASSIUM 2.9 mmol/L (3.5-5.1)
[2024-02-02] MEDS: SULINDAC 200 MG TABLET PO SCH (17:00)
[2024-02-02] MEDS: HYDROMORPHONE INJ 2 MG/ML DISP.SYRIN IV ONE (17:38)
[2024-02-02] MEDS ORDERED: IV NS 0.9% 1,000 ML IV PRN (18:00)
[2024-02-02] MEDS: POTASSIUM CL. PREMIX PERIPHER. 50 ML IV SCH (18:05)
[2024-02-02] MEDS: IV 1/2NS 1000 ML 1,000 ML IV PRN (18:40)
[2024-02-02] MEDS: HYDROMORPHONE INJ 2 MG/ML DISP.SYRIN IV PRN (18:45)
[2024-02-02] MEDS: VANCOMYCIN 1 GM in IV D5W 250ml IV SCH (18:59)
[2024-02-02] MEDS: *INSULIN REGULAR(HUMULIN R)HUM 100 UNIT/ML VIAL SQ PRN (19:01)
[2024-02-02] MEDS: ZOSYN IVPB 3.375 G in IV D5W 50ml IV SCH (20:34)
[2024-02-02] MEDS: ZOLPIDEM TARTRATE 5 MG TABLET PO PRN (22:23)
[2024-02-02] MEDS: HYDROMORPHONE 1 MG/1 ML DISP.SYRIN IV PRN (22:24)
[2024-02-02] MEDS: INSULIN REGULAR, HUMAN 100 UNIT/ML 3 ML VIAL SQ PRN (22:36)
[2024-02-02] MEDS: CLONIDINE HCL 0.1 MG TABLET PO PRN (23:24)
[2024-02-03] VITALS (29 sets, daily range): BP systolic 87–184; BP diastolic 43–135; TEMP 97.6–97.8; O2SAT 95–100
[2024-02-03 03:53] LABS: BASOPHILS % (AUTO) 0.1 % (0.0-2.0); HEMATOCRIT 40 % (33-45); HEMOGLOBIN 13.1 g/dL (11.5-14.8); LYMPHOCYTES # (AUTO) 1.4 K/uL (0.8-4.8); LYMPHOCYTES % (AUTO) 6.5 % (20.0-44.0); MEAN CORPUSCULAR HEMOGLOBIN 30 PG (26.0-33.0); MEAN CORPUSCULAR HGB CONC 33 g/dl (31.0-36.0); MEAN CORPUSCULAR VOLUME 91 fL (82-100); MONOCYTES # (AUTO) 1.9 K/uL (0.1-1.30); MONOCYTES % (AUTO) 8.7 % (2.0-12.0); NEUTROPHILS # (AUTO) 18.1 K/uL (1.8-8.9); NEUTROPHILS % (AUTO) 84.7 % (43.0-81.0); PLATELET COUNT (AUTO) 346 K/uL (150-450); RED BLOOD CELL COUNT(AUTO) 4.35 MIL/uL (4.0-5.2); RED CELL DISTRIBUTION WIDTH 16.3 % (11.5-15.0); WHITE BLOOD COUNT (AUTO) 21.4 K/uL (4.3-11.0)
[2024-02-03 04:26] LABS: ALBUMIN 2.7 g/dL (3.4-5.0); BILIRUBIN,TOTAL 0.4 mg/dL (0.2-1.0); CALCIUM, SERUM 8.7 mg/dL (8.5-10.1); CREATININE 0.9 mg/dL (0.6-1.3); MAGNESIUM 1.6 mg/dL (1.8-2.4); PHOSPHORUS 3.8 mg/dL (2.5-4.9); POTASSIUM 4.1 mmol/L (3.5-5.1); TOTAL PROTEIN, SERUM 6.6 g/dL (6.4-8.2)
[2024-02-03] MEDS: Magnesium 1GM/D5W 100ML PREMIX 100 ML IV SCH (08:57)
[2024-02-03] MEDS: HYDROMORPHONE 1 MG/1 ML DISP.SYRIN IV PRN (10:09)
[2024-02-03] MEDS ORDERED: IV NS 0.9% 250 ML IV ONE (16:00)
[2024-02-03] MEDS ORDERED: IV NS 0.9% 1,000 ML BAG IV SCH (16:00)
[2024-02-03] MEDS: MEROPENEM 1 G in IV NS 0.9% 100 ML IV SCH (20:14)
[2024-02-03] MEDS: IV NS 0.9% 1,000 ML IV PRN (23:19)
[2024-02-04] VITALS (46 sets, daily range): BP systolic 54–152; BP diastolic 30–87; TEMP 97–98.8; O2SAT 87–99
[2024-02-04 04:48] LABS: BASOPHILS % (AUTO) 0.1 % (0.0-2.0); EOSINOPHILS % (AUTO) 0.2 % (0.0-6.0); HEMATOCRIT 31 % (33-45); HEMOGLOBIN 10.3 g/dL (11.5-14.8); LYMPHOCYTES % (AUTO) 4.7 % (20.0-44.0); MEAN CORPUSCULAR HEMOGLOBIN 30 PG (26.0-33.0); MEAN CORPUSCULAR HGB CONC 33 g/dl (31.0-36.0); MEAN CORPUSCULAR VOLUME 91 fL (82-100); MONOCYTES # (AUTO) 1.8 K/uL (0.1-1.30); MONOCYTES % (AUTO) 8.4 % (2.0-12.0); NEUTROPHILS # (AUTO) 18.4 K/uL (1.8-8.9); NEUTROPHILS % (AUTO) 86.6 % (43.0-81.0); PLATELET COUNT (AUTO) 190 K/uL (150-450); RED BLOOD CELL COUNT(AUTO) 3.41 MIL/uL (4.0-5.2); RED CELL DISTRIBUTION WIDTH 16.6 % (11.5-15.0); WHITE BLOOD COUNT (AUTO) 21.3 K/uL (4.3-11.0)
[2024-02-04 05:01] LABS: ALBUMIN 2.2 g/dL (3.4-5.0); BILIRUBIN,TOTAL 0.5 mg/dL (0.2-1.0); CALCIUM, SERUM 8.3 mg/dL (8.5-10.1); CREATININE 1.3 mg/dL (0.6-1.3); MAGNESIUM 2.1 mg/dL (1.8-2.4); PHOSPHORUS 3.8 mg/dL (2.5-4.9); TOTAL PROTEIN, SERUM 5.7 g/dL (6.4-8.2)
[2024-02-04] MEDS: MAG HYDROX/AL HYDROX/SIMETH 30 ML UDC PO PRN (06:13)
[2024-02-04] MEDS: METOCLOPRAMIDE HCL 10 MG/2 ML VIAL IV PRN (09:16)
[2024-02-04] MEDS: ONDANSETRON HCL/PF 4 MG/2 ML VIAL IVP PRN (09:16)
[2024-02-04] MEDS: PANTOPRAZOLE 40 MG/PACK PACK PO SCH (09:19)
[2024-02-04] MEDS: POLYETHYLENE GLYCOL 3350 17 GM POWD.PACK PO PRN (10:47)
[2024-02-05] VITALS (22 sets, daily range): BP systolic 98–133; BP diastolic 49–65; TEMP 97.5–98.9; O2SAT 96–99
[2024-02-05] MEDS: MAGNESIUM HYDROXIDE 30 ML UDC PO PRN (03:31)
[2024-02-05 07:06] LABS: BASOPHILS % (AUTO) 0.1 % (0.0-2.0); EOSINOPHILS # (AUTO) 0.4 K/uL (0.0-0.7); EOSINOPHILS % (AUTO) 2.3 % (0.0-6.0); HEMATOCRIT 26 % (33-45); HEMOGLOBIN 8.4 g/dL (11.5-14.8); LYMPHOCYTES # (AUTO) 1.8 K/uL (0.8-4.8); LYMPHOCYTES % (AUTO) 10.9 % (20.0-44.0); MEAN CORPUSCULAR HEMOGLOBIN 30 PG (26.0-33.0); MEAN CORPUSCULAR HGB CONC 33 g/dl (31.0-36.0); MEAN CORPUSCULAR VOLUME 92 fL (82-100); MONOCYTES # (AUTO) 1.4 K/uL (0.1-1.30); MONOCYTES % (AUTO) 8.7 % (2.0-12.0); NEUTROPHILS # (AUTO) 12.7 K/uL (1.8-8.9); PLATELET COUNT (AUTO) 166 K/uL (150-450); RED BLOOD CELL COUNT(AUTO) 2.78 MIL/uL (4.0-5.2); RED CELL DISTRIBUTION WIDTH 16.7 % (11.5-15.0); WHITE BLOOD COUNT (AUTO) 16.2 K/uL (4.3-11.0)
[2024-02-05 07:24] LABS: CALCIUM, SERUM 8.5 mg/dL (8.5-10.1); POTASSIUM 3.6 mmol/L (3.5-5.1)
[2024-02-05] MEDS: IV NS 0.9% 500 ML IV ONE (12:03)
[2024-02-06] VITALS (8 sets, daily range): BP systolic 114–164; BP diastolic 66–86; TEMP 97.9–99; O2SAT 96–99
[2024-02-06 06:57] LABS: BASOPHILS % (AUTO) 0.2 % (0.0-2.0); EOSINOPHILS # (AUTO) 0.5 K/uL (0.0-0.7); EOSINOPHILS % (AUTO) 3.4 % (0.0-6.0); HEMATOCRIT 28 % (33-45); HEMOGLOBIN 9.4 g/dL (11.5-14.8); LYMPHOCYTES # (AUTO) 1.5 K/uL (0.8-4.8); LYMPHOCYTES % (AUTO) 11.2 % (20.0-44.0); MEAN CORPUSCULAR HEMOGLOBIN 31 PG (26.0-33.0); MEAN CORPUSCULAR HGB CONC 34 g/dl (31.0-36.0); MEAN CORPUSCULAR VOLUME 91 fL (82-100); MONOCYTES # (AUTO) 1.3 K/uL (0.1-1.30); MONOCYTES % (AUTO) 9.5 % (2.0-12.0); NEUTROPHILS # (AUTO) 10.4 K/uL (1.8-8.9); NEUTROPHILS % (AUTO) 75.7 % (43.0-81.0); PLATELET COUNT (AUTO) 179 K/uL (150-450); RED BLOOD CELL COUNT(AUTO) 3.07 MIL/uL (4.0-5.2); WHITE BLOOD COUNT (AUTO) 13.7 K/uL (4.3-11.0)
[2024-02-06 07:31] LABS: CALCIUM, SERUM 8.4 mg/dL (8.5-10.1); CREATININE 0.8 mg/dL (0.6-1.3); POTASSIUM 3.6 mmol/L (3.5-5.1)
[2024-02-06] MEDS: HYDROMORPHONE HCL 2 MG TABLET PO PRN (16:55)
[2024-02-06] MEDS ORDERED: MUPIROCIN OINT 2% 22 GM TUBE NS SCH (21:00)
[2024-02-07] VITALS (7 sets, daily range): BP systolic 98–112; BP diastolic 56–68; TEMP 98.4–98.7; O2SAT 90–100
[2024-02-07] MEDS: ENSURE ENLIVE 237 ML LIQUID (VANILLA) PO SCH (09:37)
[2024-02-07 11:11] LABS: BASOPHILS % (AUTO) 0.1 % (0.0-2.0); EOSINOPHILS # (AUTO) 0.5 K/uL (0.0-0.7); EOSINOPHILS % (AUTO) 3.8 % (0.0-6.0); HEMATOCRIT 31 % (33-45); HEMOGLOBIN 10.4 g/dL (11.5-14.8); LYMPHOCYTES # (AUTO) 1.8 K/uL (0.8-4.8); LYMPHOCYTES % (AUTO) 13.5 % (20.0-44.0); MEAN CORPUSCULAR HEMOGLOBIN 31 PG (26.0-33.0); MEAN CORPUSCULAR HGB CONC 34 g/dl (31.0-36.0); MEAN CORPUSCULAR VOLUME 92 fL (82-100); MONOCYTES # (AUTO) 1.1 K/uL (0.1-1.30); MONOCYTES % (AUTO) 8.4 % (2.0-12.0); NEUTROPHILS # (AUTO) 9.6 K/uL (1.8-8.9); NEUTROPHILS % (AUTO) 74.2 % (43.0-81.0); PLATELET COUNT (AUTO) 249 K/uL (150-450); RED CELL DISTRIBUTION WIDTH 15.8 % (11.5-15.0)
[2024-02-07 11:34] LABS: ALBUMIN 2.1 g/dL (3.4-5.0); BILIRUBIN,TOTAL 0.5 mg/dL (0.2-1.0); CALCIUM, SERUM 8.8 mg/dL (8.5-10.1); CREATININE 0.7 mg/dL (0.6-1.3); PHOSPHORUS 2.5 mg/dL (2.5-4.9); POTASSIUM 3.2 mmol/L (3.5-5.1); TOTAL PROTEIN, SERUM 6.6 g/dL (6.4-8.2)
== END 2024-02-07 17:50 | disposition home health service (06) | DRG 454 ==
LOC: MED 16:34 → ICU 02-02 11:51 → TELE 02-04 18:33 → MED 02-07 09:19
PROVIDERS: ADMIT Student in an Organized Health Care Education/Training Program
PROC: 0SG00AJ Fusion of Lumbar Vertebral Joint with Interbody Fusion Device, Posterior Approach, Anterior Column, Open Approach (ICD-10-PCS; principal; 2024-02-02)
PROC: 01NB0ZZ Release Lumbar Nerve, Open Approach (ICD-10-PCS; 2024-02-02)
PROC: 0RG7071 Fusion of 2 to 7 Thoracic Vertebral Joints with Autologous Tissue Substitute, Posterior Approach, Posterior Column, Open Approach (ICD-10-PCS; 2024-02-02)
PROC: 0RGA071 Fusion of Thoracolumbar Vertebral Joint with Autologous Tissue Substitute, Posterior Approach, Posterior Column, Open Approach (ICD-10-PCS; 2024-02-02)
PROC: BR1 Imaging, Axial Skeleton, Except Skull and Facial Bones, Fluoroscopy (ICD-10-PCS; 2024-02-02)
PROC: 30233N1 Transfusion of Nonautologous Red Blood Cells into Peripheral Vein, Percutaneous Approach (ICD-10-PCS; 2024-02-02)
PROC: 0SG1071 Fusion of 2 or more Lumbar Vertebral Joints with Autologous Tissue Substitute, Posterior Approach, Posterior Column, Open Approach (ICD-10-PCS; 2024-02-02)
PROC: 0SB20ZZ Excision of Lumbar Vertebral Disc, Open Approach (ICD-10-PCS; 2024-02-02)
PROC: 01N80ZZ Release Thoracic Nerve, Open Approach (ICD-10-PCS; 2024-02-02)
PROC: 0SP004Z Removal of Internal Fixation Device from Lumbar Vertebral Joint, Open Approach (ICD-10-PCS; 2024-02-02)
DX: M48.061 Spinal stenosis, lumbar region without neurogenic claudication (principal); S32.019A Unspecified fracture of first lumbar vertebra, initial encounter for closed fracture; M41.56 Other secondary scoliosis, lumbar region; G89.4 Chronic pain syndrome; M19.90 Unspecified osteoarthritis, unspecified site; M51.36 Other intervertebral disc degeneration, lumbar region; E66.9 Obesity, unspecified; E78.5 Hyperlipidemia, unspecified; J45.909 Unspecified asthma, uncomplicated; I10 Essential (primary) hypertension; E87.6 Hypokalemia; Z88.2 Allergy status to sulfonamides; Z90.711 Acquired absence of uterus with remaining cervical stump; Z96.653 Presence of artificial knee joint, bilateral; E11.40 Type 2 diabetes mellitus with diabetic neuropathy, unspecified; Z68.36 Body mass index [BMI] 36.0-36.9, adult; Z83.3 Family history of diabetes mellitus; X58.XXXA Exposure to other specified factors, initial encounter; Y93.9 Activity, unspecified; Y92.009 Unspecified place in unspecified non-institutional (private) residence as the place of occurrence of the external cause
CPT/HCPCS: 36415; 36600; 71045-TC; 72110-TC; 80048-TC; 80053-TC; 82803-TC; 82962-TC; 83735-TC; 84100-TC; 85025-TC; 85610-TC; 85730-TC; 86850-TC; 88300-TC; 94760-TC; 94799-TC; 97110-TC; 97112-TC; 97530-TC; A4223; A6253; A6403; C1713; C9113; G0378; J0330; J0690; J1100; J1170; J1644; J1815; J2185; J2405; J2543; J2704; J2765; J3010; J3370; J3475; J3480; J3490; J7030; J7040; J7050; J7060; P9016